=== PATIENT | male | born 1950 | race Caucasian/White ===

== ENCOUNTER → 2021-08-12 10:57 | Outpatient (CLI) | payer OTHER, SELFPAY ==
--- NOTE | 2021-08-12 12:23 | DI.CT.S_ITS ---
PROCEDURE: CT ABDOMEN PELVIS W CON INDICATIONS: Right lower quadrant pain TECHNIQUE: After the administration of oral and IV contrast, axial sections were acquired from the lung bases to the pubic symphysis. Coronal and sagittal reformats were performed. For radiation dose reduction, the following was used: automated exposure control, adjustment of mA and/or kV according to patient size. COMPARISON: None. FINDINGS: Image quality: Excellent. Lung bases: Small right pleural effusion. No airspace disease. Heart: Marked cardiomegaly with heavy coronary artery calcification. No pericardial effusion. ABDOMEN: Liver: No masses Gallbladder: Normal wall thickness. Biliary ducts: Nondilated. Pancreas: Normal. Spleen: Normal size. Adrenal Glands: No nodules. Kidneys and Ureters: Both kidneys are atrophic with heterogeneous parenchymal attenuation and several low and high-density cysts. Along the lower pole of the right kidney, there are arises a peripherally hyperdense 2.4 cm lesion, and along the lower pole of the left kidney, a 2.1 cm hyperdense mass. Stomach and Bowel: Stomach, small bowel loops, and colon are unremarkable. Peritoneum: There is a large right retroperitoneal hematoma measuring 19.7 by 13.1 x 8.6 cm anteriorly displacing the right kidney. There is a close association to, and it appears to arise from the right psoas muscle distally and extends cranial to just under the diaphragm. There is mixed internal attenuation, but mainly attenuation of acute hemorrhage. There is no active contrast extravasation visible. The hematoma is confined to the right posterior retroperitoneal space. There is a small amount of free pelvic fluid with low attenuation. No free air. Ventral Wall: Tiny fat containing umbilical hernia. Abdominal Nodes: No retroperitoneal or mesenteric adenopathy by size criteria. Vessels: Aorta and inferior vena cava are normal in size. Heavy abdominal aortic atherosclerotic calcification. PELVIS: Pelvic Organs: Mildly enlarged prostate gland. Bladder: Normal wall thickness. No stones. Pelvic Nodes: No enlarged lymph nodes. Miscellaneous: There is a fluid and bowel containing left inguinal hernia. Distal descending and proximal sigmoid colon within the hernia sac is not obstructed. Small fat containing right inguinal hernia is present. Fluid in the left hernia sac displaces the testicle which is not visible on this study. Bones: Unremarkable. IMPRESSION: 1. Large acute right retroperitoneal hematoma likely accounts for right abdominal pain. 2. Bilateral renal atrophy with indeterminate lower pole lesions bilaterally. 3. Nonobstructing bowel and fluid containing left inguinal hernia. 4. Cardiomegaly, small right effusion, and trace free fluid may be signs of volume overload. 5. Report alert was called to the office of Dr. Christoph Escoto. Dictated by: Suzanne Loja M.D. on 08/12/2021 at 12:48 Approved by: Suzanne Loja M.D. on 08/12/2021 at 13:16
== END ==
PROVIDERS: PCP Internal Medicine; Referring Provider Internal Medicine; Visit Provider Internal Medicine
DX: R10.31 Right lower quadrant pain (principal); K66.1 Hemoperitoneum; N28.9 Disorder of kidney and ureter, unspecified; K40.90 Unilateral inguinal hernia, without obstruction or gangrene, not specified as recurrent; I51.7 Cardiomegaly; J90 Pleural effusion, not elsewhere classified; I25.10 Atherosclerotic heart disease of native coronary artery without angina pectoris
CPT/HCPCS: 74177; Q9967

== ENCOUNTER → 2021-11-28 12:46 | Outpatient (CLI) | payer OTHER, SELFPAY ==
[2021-11-28 14:00] LABS: Appearance Urine UA CLOUDY; Bilirubin Urine UA NEGATIVE (NEGATIVE); Color Urine UA YELLOW; Glucose Urine UA NEGATIVE (Negative); Ketones Urine UA NEGATIVE (NEGATIVE); Leukocyte Esterase Urine UA 2+ (NEGATIVE); Nitrite Urine UA NEGATIVE (Negative); Occult Blood Urine UA 2+ (Negative); Protein Urine UA 3+ (Negative); Specific Gravity Urine UA 1.015 (1.000-1.035); Urobilinogen Urine UA 0.2 E.U./dL (0.2)
[2021-11-28 14:29] LABS: RBC Urine 1-5/HPF (0-5/HPF)
[2021-11-28 14:30] LABS: Bacteria Urine Moderate (10-30); Culture Indicated Urine Specimen Cultured; Squamous Epithelial Cell Urine 0-1 /HPF (0-5/HPF); WBC Urine >100/HPF (0-5/HPF)
== END ==
PROVIDERS: PCP Internal Medicine; Referring Provider Internal Medicine; Visit Provider Internal Medicine
DX: R30.0 Dysuria (principal)
CPT/HCPCS: 81001; 87077; 87086; 87186

== ENCOUNTER → 2022-11-26 14:48 | Outpatient (CLI) | payer OTHER, SELFPAY ==
[2022-11-26 15:22] LABS: Hematocrit 31.9 % (41-53); Hemoglobin 10.5 g/dL (13.5-17.5); Mean Corpuscular HGB Conc 33.1 % (30-36); Mean Corpuscular Hemoglobin 31.5 PG (26-34); Mean Corpuscular Volume 95.2 fL (80-100); Platelet Count 155 X10^3/uL (150-400); Red Blood Cell Count 3.35 X10^6/uL (4.5-5.9); White Blood Cell Count 4.6 X10^3/uL (4.5-11.0)
[2022-11-26 15:42] LABS: Alanine Aminotransferase 26 IU/L (<50); Albumin 4.7 g/dL (3.5-5.0); Albumin Globulin Ratio 1.5 (1.0-2.8); Alkaline Phosphatase 184 U/L (38-126); Aspartate Aminotransferase 34 IU/L (17-59); BUN Creatinine Ratio 6.7 (6-22); Bilirubin Total 0.9 mg/dL (0.2-1.3); Blood Urea Nitrogen 41 mg/dL (9-20); Calcium 9.8 mg/dL (8.4-10.2); Carbon Dioxide 34 mmol/L (22-32); Chloride 88 mmol/L (98-107); Cholesterol 123 mg/dL (140-199); Estimated Glomerular Filt Rate 9 mL/min (>60); Globulin 3.2 g/dL (1.7-4.1); Glucose 95 mg/dL (80-110); HDL Cholesterol 51 mg/dL (40-60); HEMOLYSIS < 15 (0-50); LDL Cholesterol Calculated 56 mg/dL (<100); Potassium 4.4 mmol/L (3.4-5.1); Sodium 133 mmol/L (137-145); Total Protein 7.9 g/dL (6.3-8.2); Triglycerides 81 mg/dL (35-150)
== END ==
PROVIDERS: PCP Internal Medicine; Referring Provider Internal Medicine; Visit Provider Internal Medicine
DX: I10 Essential (primary) hypertension (principal); N18.6 End stage renal disease; I25.10 Atherosclerotic heart disease of native coronary artery without angina pectoris; R73.01 Impaired fasting glucose
CPT/HCPCS: 36415; 80053; 80061; 83036; 84443; 85027

== ENCOUNTER 2024-03-14 08:10 | Emergency (ER) | payer OTHER, SELFPAY ==
[2024-03-14] VITALS (25 sets, daily range): BP systolic 81–141; BP diastolic 35–69; PULSE 48–53; RESP 18–35; TEMP 36.6; O2SAT 91–98; BMI 23.7
--- NOTE | 2024-03-14 08:14 | ED.GENADULT ---
HPI - General Adult General Chief complaint: Extremity Injury, Upper Stated complaint: L Wrist Broken Time Seen by Provider: 03/14/24 08:12 Source: patient, RN notes reviewed and old records reviewed Mode of arrival: Family Vehicle Limitations: no limitations History of Present Illness HPI narrative: This is a 74-year-old male history of cardiac disease, hypertension, end-stage renal disease on dialysis, BPH, gout presents with complaint of possible fracture of the left wrist. Patient states he was at home lost his balance and fell backwards. States he has deformity and pain at his wrist. Denies any numbness tingling or weakness. Denies other injuries. States he did not hit his head denies any neck pain, denies any chest pain. States he has chronic shortness of breath no increased baseline. No nausea or vomiting. No other new GI or urinary symptoms. Denies any injuries elsewhere his extremities and was able to stand and ambulate. Patient does note he has relatively new fistula in the left which they has been using for dialysis. He also has 1 pleasant on the right which was used at his dialysis on Thursday. Patient notes his only new medication is tramadol. Has not allergy to codeine but has tolerated other narcotics without issue. Patient's primary care physician is Dr. Ulloa. Patient lives with family. Had lift assist with EMS and then transported by family in private auto. Related Data Home Medications Medication Instructions Recorded Confirmed bee pollen 1,000 mg chewable tablet 2,000 mg PO DAILY 11/08/21 02/17/24 coenzyme Q10 100 mg capsule 300 mg PO DAILY 11/08/21 02/17/24 colchicine 0.6 mg tablet 0.6 mg PO DAILY PRN 11/08/21 02/17/24 diphenhydramine HCl 25 mg capsule 50 mg PO BEDTIME 11/08/21 02/17/24 [id number]-vbqkh 300 mcg-K 60 1 tab PO DAILY 11/08/21 02/17/24 mcg-lycop 600 mcg-lutein 300 mcg tablet (Men 50 Plus Multivitamin) probiotic 1 cap PO DAILY 11/08/21 02/17/24 sevelamer carbonate 800 mg tablet 800 mg PO TID PRN 11/08/21 02/17/24 ferric citrate 210 mg iron tablet 1 tab PO BID 05/28/22 02/17/24 (Auryxia) Previous Rx's Medication Instructions Recorded mirtazapine 30 mg disintegrating 30 mg PO DAILY #90 tabs 03/17/23 tablet carvedilol 25 mg tablet 25 mg PO BID #180 tabs 04/23/23 allopurinol 100 mg tablet 200 mg (2 x 100 mg) PO DAILY #180 05/11/23 tabs tamsulosin 0.4 mg capsule 0.8 mg (2 x 0.4 mg) PO DAILY #180 06/08/23 caps furosemide 80 mg tablet 80 mg PO DAILY #90 tabs 06/22/23 sertraline 100 mg tablet 100 mg PO DAILY #90 tabs 06/22/23 erythromycin 5 mg/gram (0.5 %) eye 0.5 inch EYE-BOTH BID #3.5 grams 08/19/23 ointment diphenoxylate-atropine 2.5 1 tab PO DAILY PRN diarrhea #90 08/26/23 mg-0.025 mg tablet tabs metoclopramide HCl 5 mg tablet 5 mg PO BID #180 tabs 09/14/23 tramadol 50 mg tablet 50 mg PO Q6H PRN pain #180 tabs 01/02/24 omeprazole 20 mg capsule,delayed 40 mg (2 x 20 mg) PO BID PRN 02/01/24 release reflux #180 caps losartan 25 mg tablet 25 mg PO DAILY #90 tabs 02/29/24 rosuvastatin 10 mg tablet 10 mg PO DAILY #90 tabs 02/29/24 oxycodone 5 mg tablet 5 mg PO QID PRN pain #10 tabs 03/14/24 Allergies Allergy/AdvReac Type Severity Reaction Status Date / Time lisinopril AdvReac Intermediate Verified 02/17/24 11:54 Ibuprofen Allergy Unknown Uncoded 02/17/24 11:54 CODEINE AdvReac Unknown Uncoded 02/17/24 11:54 Review of Systems Review of Systems ROS Unobtainable: All systems reviewed & are unremarkable except as noted in HPI and below Patient History Medical History Right inguinal hernia Stye Tinea pedis Mixed hyperlipidemia Venous (peripheral) insufficiency Do not resuscitate Systolic CHF, chronic Abdominal hematoma Depression, recurrent BPH w urinary obs/LUTS GERD without esophagitis Essential hypertension ESRD (end stage renal disease) Chronic, continuous use of opioids Hearing loss History of peritoneal dialysis Irritable bowel syndrome Coronary artery disease Family History Father History of heart disease Mother Cancer Brother History of heart disease Social History Smoking Status: Current some day smoker Smoking Status: Never smoker Exam Narrative Exam Narrative: GEN: Patient appears in mild distress. HEAD: No evidence of trauma, no raccoon/Albrecht sign. NECK: Nontender, painless range of motion, trachea midline Negative Nexus criteria, no midline line tenderness, distracting injury, altered mental status, neuro deficit, recent EtOH. EYES: PERRLA, EOMI ENT: External inspection normal except for a small area of ecchymosis under the left eye, patient and family state that was from a stye that popped and not from trauma, trachea is midline, TM's are normal no hemotypanum, Nares are clear, no septal hematoma, no dental or oral injury, airway is normal and with normal occlusion, No bony tenderness RESP: Chest is nontender and has symmetric movement, no ecchymosis, breath sounds are normal no crackles, wheezes or rales CVS: Heart sounds are normal, no murmur noted, No JVD. ABG/GI: Nontender, soft, normal bowel sounds, no distention, no organomegaly, pelvic rock is negative NEURO: Oriented AOx3, neuro is grossly intact, sensation and motor is normal all 4 extremities moving, cranial nerves II through XII are intact, GCS is 15 PSYCH: Normal mood and affect SKIN: Intact, warm and dry, no crepitus and without decubitus. BACK: No CVA tenderness, no vertebral tenderness, no step-off's, no crepitus EXT: Patient has of the distal left wrist. Has 2+ radial pulse, cap refill less than 2 seconds in all 5 fingers. Patient does have full range of motion of all 5 fingers. Pain with any movement at the wrist he is placed in a splint prior to arrival. No tenderness over the proximal forearm elbow use shoulder. Hips are nontender, no pedal edema, normal color and temperature, normal range of motion of extremities with normal tendon exam, 2+ pulses in all four extremities Initial Vital Signs Initial Vital Signs: Vital Signs Pulse Rate 49 L 03/14/24 08:20 Blood Pressure 93/41 L 03/14/24 08:20 Pulse Oximetry 94 03/14/24 08:20 Procedures Orthopedic Fracture Reduction Fracture #1: Time Out Performed: Yes Side: left Fracture Reduction Location: radius and ulna Analgesia: procedural sedation Technique: direct manipulation and traction/counter-traction Post Reduction X-rays Demonstrate: acceptable reduction Post-reduction neuro exam: intact and no change Post-reduction vascular exam: intact and no change Splint Applied: Yes Patient Tolerated Procedure: Well Procedural Sedation Consent signed: Yes Time out performed: Yes Indication: fracture/dislocation reduction ASA Class: III Mallampati Airway Classification: Class III Time of Last PO Intake: 12:00 Preparation: front desk monitor applied, pulse oximeter, capnometry used, supplemental O2 applied, suction/airway equipment at bedside and IV secured IV Propofol dose (mg): 60 Intraservice time/total sedation time (min): 20 ED Sedation Level: Moderate (Concious) Patient Tolerated Procedure: Well Complications: hypoventilation Interventions: Airway repositioned Course Orders Ordered: ED Orders 03/14/24 08:21 XR wrist LT min 3V Stat 03/14/24 09:36 XR wrist LT min 3V Stat Discontinued Medications Oxycodone HCl (Oxycodone Ir 5 Mg Tablet) 10 mg PO NOW ONE Stop: 03/14/24 08:31 Last Admin: 03/14/24 08:33 Dose: 10 mg Documented By: RODRIGUEZ Propofol (Propofol 200 Mg/20 Ml Vial) 80 mg 1 mg/kg (80 mg) IV NOW ONE Stop: 03/14/24 08:55 Last Admin: 03/14/24 09:21 Dose: 60 mg Documented By: RODRIGUEZ Vital Signs Vital signs: Vital Signs - 8 hr 03/14/24 08:20 03/14/24 08:20 03/14/24 08:24 Temperature 97.8 F Pulse Rate 49 L 50 L Respiratory Rate 18 Blood Pressure 93/41 L 93/41 L Pulse Oximetry 94 94 Oxygen Delivery Method Room Air 03/14/24 08:30 03/14/24 08:31 03/14/24 08:31 Temperature Pulse Rate 49 L 49 L Respiratory Rate Blood Pressure 81/35 L Pulse Oximetry 94 95 Oxygen Delivery Method 03/14/24 08:36 03/14/24 08:40 03/14/24 08:43 Temperature Pulse Rate 49 L 49 L 49 L Respiratory Rate 24 Blood Pressure Pulse Oximetry 94 94 93 Oxygen Delivery Method 03/14/24 08:47 03/14/24 08:47 03/14/24 08:51 Temperature Pulse Rate 48 L 48 L Respiratory Rate 26 H Blood Pressure 124/49 L Pulse Oximetry 94 95 Oxygen Delivery Method 03/14/24 08:51 03/14/24 08:55 03/14/24 08:55 Temperature Pulse Rate 48 L Respiratory Rate Blood Pressure 121/46 L 118/48 L Pulse Oximetry 95 Oxygen Delivery Method 03/14/24 09:00 03/14/24 09:06 03/14/24 09:06 Temperature Pulse Rate 49 L 48 L Respiratory Rate 32 H 32 H Blood Pressure 128/56 L Pulse Oximetry 94 94 Oxygen Delivery Method 03/14/24 09:11 03/14/24 09:11 03/14/24 09:15 Temperature Pulse Rate 48 L 50 L Respiratory Rate 24 32 H Blood Pressure 120/52 L Pulse Oximetry 94 93 Oxygen Delivery Method 03/14/24 09:15 03/14/24 09:23 03/14/24 09:23 Temperature Pulse Rate 50 L Respiratory Rate 35 H Blood Pressure 119/64 130/69 Pulse Oximetry 93 Oxygen Delivery Method 03/14/24 09:26 03/14/24 09:26 03/14/24 09:30 Temperature Pulse Rate 50 L 49 L Respiratory Rate 31 H 35 H Blood Pressure 119/57 L Pulse Oximetry 93 94 Oxygen Delivery Method 03/14/24 09:31 03/14/24 09:31 03/14/24 09:36 Temperature Pulse Rate 49 L 50 L Respiratory Rate 29 H 24 Blood Pressure 128/47 L Pulse Oximetry 94 94 Oxygen Delivery Method 03/14/24 09:36 03/14/24 09:41 03/14/24 09:49 Temperature Pulse Rate 51 L 51 L Respiratory Rate 26 H 26 H Blood Pressure 115/42 L Pulse Oximetry 91 97 Oxygen Delivery Method 03/14/24 09:49 03/14/24 09:51 03/14/24 09:51 Temperature Pulse Rate 51 L Respiratory Rate 26 H Blood Pressure 125/56 L 109/58 L Pulse Oximetry 98 Oxygen Delivery Method 03/14/24 10:00 03/14/24 10:00 03/14/24 10:11 Temperature Pulse Rate 52 L 53 L Respiratory Rate 28 H Blood Pressure 121/54 L Pulse Oximetry 95 95 Oxygen Delivery Method 03/14/24 10:11 03/14/24 10:20 03/14/24 10:20 Temperature Pulse Rate 51 L Respiratory Rate Blood Pressure 122/63 141/65 H Pulse Oximetry 94 Oxygen Delivery Method Medical Decision Making Imaging Data Extremity x-ray #1: Radiologist's Impression: Close Wrist X-Ray (Signed) Sheeba Flores - 03/14/24 Launch?Image [address] [address] XRay Report Signed Patient: Heri Art MR#: [id number] : 1950 Acct:[id number] Age/Sex: 74 / M Date of Service: 03/14/24 Loc: ED Accession Number: [id number] Procedure: XR wrist LT min 3V Ordering Provider: Elle Powell D.O. PROCEDURE: XR WRIST LT MIN 3V INDICATIONS: fall, deformity TECHNIQUE: 4 views of the wrist were acquired. COMPARISON: None. FINDINGS: Bones: Moderately displaced impacted and volar angulated comminuted fracture of the distal radius. No definite intra-articular extension. Moderately displaced and volar angulated comminuted fracture of the distal ulnar. Query possible intra-articular extension. Soft tissues: No suspicious soft tissue calcifications. Vascular calcifications are present. IMPRESSION: Comminuted and volar angulated fractures of the distal radius and ulna. Approved by: Sheeba Flores M.D.,Ph.D. on 03/14/2024 at 8:50 Extremity x-ray #2: Radiologist's Impression: [address] [address] XRay Report Signed Patient: Heri Art MR#: [id number] : 1950 Acct:[id number] Age/Sex: 74 / M Date of Service: 03/14/24 Loc: ED Accession Number: [id number] Procedure: XR wrist LT min 3V Ordering Provider: Elle Powell D.O. PROCEDURE: XR WRIST LT MIN 3V INDICATIONS: post reduc TECHNIQUE: 3 views of the wrist were acquired. COMPARISON: [facility], , XR WRIST LT MIN 3V, 03/14/2024, 8:23. FINDINGS: Bones: Post reduction films demonstrate improved alignment of comminuted, impacted fractures of the distal radius and ulna. There is slight volar displacement of the dominant distal radius fracture fragment and slight ulnar displacement of the dominant distal ulna fracture fragment. No new fracture. No suspicious bony lesions. Soft tissues: Overlying splint obscures fine osseous detail No suspicious soft tissue calcifications. Vascular calcifications. IMPRESSION: Post reduction films demonstrate improved alignment of comminuted, impacted fractures of the distal radius and ulna. There is slight volar displacement of the dominant distal radius fracture fragment and slight ulnar displacement of the dominant distal ulna fracture fragment. Dictated by: Kemal Taylor M.D. on 03/14/2024 at 8:59 Approved by: Kemal Taylor M.D. on 03/14/2024 at 9:03 [facility] Narrative Medical decision making narrative: 74-year-old male who reports a mechanical ground level fall witnessed with no loss of consciousness. Patient states he did not hit his head. Patient has deformity at the wrist x-ray imaging was obtained. Patient x-ray shows displaced fracture of the distal radius and ulna. Discussed with patient would benefit from reduction. Discussed hematoma block versus procedural sedation. Patient does have multiple medical issues. He does not wish to use the hematoma block and prefers procedural sedation. We did discuss risks versus benefits with the family at bedside. Patient notes he is DNR DNI but I did discuss that if patient had significant complications we usually pause the DNI for procedures. Patient's initial blood pressure was somewhat low, he normally runs systolic 90. Was adjusted and repeat blood pressures are more appropriate pulse has been in the 40s which is typical for patient. Spoke with Dr. Gordon, orthopedic surgery plan for follow up in the next week. Patient overall tolerated procedure well, had a small amount of fluid about 150 mL. Received 60 mg of propofol total. Patient did require little bit of jaw thrust. Patient is neurovascularly intact postprocedure. Patient has fistulas on both sides, splint was placed little bit lower so as not to have any compression on his fistula and noted with family if they feel like it is too tight or need to readjusted they may loosen that area as well if there is any concern for compression over the fistula site. Patient is neurovascularly intact post splint. Discharge Plan Departure Patient Disposition: Home Clinical Impression: Closed fracture of left wrist Instructions: DI for Wrist Fracture Activity Restrictions/Additional Instructions: Follow up with Orthopedic surgery, call today to set up a follow up appointment. You have a fracture of the distal radius and ulna. You did have a procedural sedation with propofol today. You can take acetaminophen 1000 mg every 6 hours as needed for pain. If adequate you can take your tramadol with with this. If in adequate you can take oxycodone instead of tramadol but do not take them together. You can take oxycodone 1-2 tablets every 6 hours as needed for pain. This medication can make you sleepy do not drive, perform hazardous activities or make any major decisions while taking it. This medication will make you constipated please take a stool softener once to twice daily until stools are soft and regular. Prescription sent to [facility] in [place]. Splint Care: Keep splint clean and dry. Elevated affected body part to decrease swelling. Keep a close eye on your splint if you feel like there is any compression over the area of your fistula you may loosen that area or re-bandage it so that there was no compression. OK to use ice pack on the affected body part. Use for 15-20 minutes each time, for 5-6x per day. If you develop worsening pain, numbness, tingling, discoloration of the affected body part, loosen the splint by loosening the TIESHA wrap, and either see your doctor for an urgent re-assessment, or return to the Emergency Department. Return to the Emergency Department for any new or worsening symptoms. Prescriptions: New oxycodone 5 mg tablet 5 mg PO QID PRN (Reason: pain) Qty: 10 0RF No Action mirtazapine 30 mg tablet,disintegrating 30 mg PO DAILY Qty: 90 3RF carvedilol 25 mg tablet 25 mg PO BID Qty: 180 3RF allopurinol 100 mg tablet 200 mg PO DAILY Qty: 180 3RF tamsulosin 0.4 mg capsule 0.8 mg PO DAILY Qty: 180 3RF furosemide 80 mg tablet 80 mg PO DAILY Qty: 90 3RF sertraline 100 mg tablet 100 mg PO DAILY Qty: 90 3RF diphenoxylate-atropine 2.5-0.025 mg tablet 1 tab PO DAILY PRN (Reason: diarrhea) Qty: 90 1RF metoclopramide HCl 5 mg tablet 5 mg PO BID Qty: 180 3RF tramadol 50 mg tablet 50 mg PO Q6H PRN (Reason: pain) Qty: 180 1RF omeprazole 20 mg capsule,delayed release(DR/EC) 40 mg PO BID PRN (Reason: reflux) Qty: 180 3RF losartan 25 mg tablet 25 mg PO DAILY Qty: 90 3RF rosuvastatin 10 mg tablet 10 mg PO DAILY Qty: 90 3RF erythromycin 5 mg/gram (0.5 %) ointment 0.5 inch EYE-BOTH BID Qty: 3.5 2RF sevelamer carbonate 800 mg tablet 800 mg PO TID PRN bee pollen 1,000 mg tablet,chewable 2,000 mg PO DAILY Rx Instructions: 1-2 tablets daily prn Men 50 Plus Multivitamin 300-600-300 mcg tablet 1 tab PO DAILY probiotic capsule 1 cap PO DAILY coenzyme Q10 100 mg capsule 300 mg PO DAILY colchicine 0.6 mg tablet 0.6 mg PO DAILY PRN diphenhydramine HCl 25 mg capsule 50 mg PO BEDTIME Auryxia 210 mg iron tablet 1 tab PO BID Referrals: Jasmyne Cadena MD [Physician] - Alfredo Ulloa MD [Primary Care Provider] - Stand Alone Forms: Patient Portal/API
--- NOTE | 2024-03-14 08:21 | DI.RAD.S_ITS ---
PROCEDURE: XR WRIST LT MIN 3V INDICATIONS: fall, deformity TECHNIQUE: 4 views of the wrist were acquired. COMPARISON: None. FINDINGS: Bones: Moderately displaced impacted and volar angulated comminuted fracture of the distal radius. No definite intra-articular extension. Moderately displaced and volar angulated comminuted fracture of the distal ulnar. Query possible intra-articular extension. Soft tissues: No suspicious soft tissue calcifications. Vascular calcifications are present. IMPRESSION: Comminuted and volar angulated fractures of the distal radius and ulna. Approved by: Sheeba Flores M.D.,Ph.D. on 03/14/2024 at 8:50
[2024-03-14] MEDS: OXYCODONE IR 5 MG TABLET 10 MG PO (08:33)
[2024-03-14] MEDS: propofoL 200 MG/20 ML VIAL 80 MG IV (09:21)
--- NOTE | 2024-03-14 09:36 | DI.RAD.S_ITS ---
PROCEDURE: XR WRIST LT MIN 3V INDICATIONS: post reduc TECHNIQUE: 3 views of the wrist were acquired. COMPARISON: [facility], [place], XR WRIST LT MIN 3V, 03/14/2024, 8:23. FINDINGS: Bones: Post reduction films demonstrate improved alignment of comminuted, impacted fractures of the distal radius and ulna. There is slight volar displacement of the dominant distal radius fracture fragment and slight ulnar displacement of the dominant distal ulna fracture fragment. No new fracture. No suspicious bony lesions. Soft tissues: Overlying splint obscures fine osseous detail No suspicious soft tissue calcifications. Vascular calcifications. IMPRESSION: Post reduction films demonstrate improved alignment of comminuted, impacted fractures of the distal radius and ulna. There is slight volar displacement of the dominant distal radius fracture fragment and slight ulnar displacement of the dominant distal ulna fracture fragment. Dictated by: Kemal Taylor M.D. on 03/14/2024 at 8:59 Approved by: Kemal Taylor M.D. on 03/14/2024 at 9:03
== END 2024-03-14 10:42 | disposition home or self-care (01) ==
PROVIDERS: Emergency Provider Emergency Medicine; PCP Internal Medicine
DX: S52.502A Unspecified fracture of the lower end of left radius, initial encounter for closed fracture (principal); S52.602A Unspecified fracture of lower end of left ulna, initial encounter for closed fracture; W18.30XA Fall on same level, unspecified, initial encounter
CPT/HCPCS: 25605; 29125; 36415; 73110; 99152; 99284; 99285; J2704